=== PATIENT | male | born 1960 | race Caucasian/White ===

== ENCOUNTER 2022-04-25 09:00 | Outpatient (CLI) | payer BC, OTHER ==
--- NOTE | 2022-04-25 14:56 | XRAY Report ---
PROCEDURE: Finger(s) LT INDICATIONS: LEFT THUMB INJURY/CONTUSION TECHNIQUE: AP hand, 2 views of the first finger(s) acquired. COMPARISON: None FINDINGS: Bones: No fractures or dislocations. No suspicious bony lesions. First carpometacarpal joint space narrowing and subchondral sclerosis Soft tissues: No suspicious soft tissue calcifications. IMPRESSION: Osteoporosis without fracture or foreign body Reviewed by: Albino Santizo MD on 04/25/2022 1:55 PM [place] Approved by: Albino Santizo MD on 04/25/2022 1:55 PM [place] Station ID: [id number]
== END 2022-04-25 09:01 | disposition home or self-care (01) ==
LOC: DI.S 09:00
PROVIDERS: ATTEND Physician Assistant Medical
DX: M81.0 Age-related osteoporosis without current pathological fracture (principal)